=== PATIENT | male | born 2000 | race Caucasian/White ===

== ENCOUNTER → 2024-06-16 17:17 | Outpatient (REF) | payer OTHER, SELFPAY | LOC: MRI 3T 17:17 | PROVIDERS: ATTENDING PHYSICIAN Surgery; FAMILY PHYSICIAN Family Medicine | DX: L98.9 Disorder of the skin and subcutaneous tissue, unspecified (principal) | CPT/HCPCS: 72197; A9575 ==

== ENCOUNTER → 2024-07-14 11:10 | Outpatient (REF) | payer OTHER, SELFPAY ==
[2024-07-16 11:53] LABS: Quantiferon Mitogen minus NIL 9.98 IU/mL; Quantiferon NIL 0.02 IU/mL; Quantiferon Plus TB1 minus NIL 0.02 IU/mL (<=0.34); Quantiferon Plus TB2 minus NIL 0.01 IU/mL (<=0.34); Quantiferon TB Gold Plus Negative (Negative)
== END ==
LOC: OHS 11:10
PROVIDERS: ATTENDING PHYSICIAN Nurse Practitioner Family
DX: Z23 Encounter for immunization (principal)
CPT/HCPCS: 36415; 86480

== ENCOUNTER → 2024-09-12 08:10 | Outpatient (REF) | payer BC, SELFPAY | LOC: REG 08:10 | PROVIDERS: ATTENDING PHYSICIAN Surgery; FAMILY PHYSICIAN Family Medicine | DX: N36.0 Urethral fistula (principal) | CPT/HCPCS: 36415; 86140 ==

== ENCOUNTER 2024-11-28 06:23 | Day surgery (SDC) | payer BC, SELFPAY | END 2024-11-28 09:03 | disposition home or self-care (01) | LOC: GI 06:23 | PROVIDERS: ATTENDING PHYSICIAN Internal Medicine Gastroenterology | DX: K64.0 First degree hemorrhoids (principal); K62.89 Other specified diseases of anus and rectum; L98.8 Other specified disorders of the skin and subcutaneous tissue; K52.89 Other specified noninfective gastroenteritis and colitis | CPT/HCPCS: 45380; 88305 ==

== ENCOUNTER → 2024-12-06 07:30 | Outpatient (REF) | payer BC, SELFPAY ==
[2024-12-06 09:29] LABS: % Basophils 0.4 % (0-2); % Eosinophils 4.8 % (0-6); % Immature Granulocytes 0.4 % (0-0.5); % Lymphocytes 34.7 % (20.5-51.1); % Neutrophils 49.7 % (42.2-75.2); Absolute Eosinophils 0.2 10^3/uL (0-0.7); Absolute Lymphocytes 1.6 10^3/uL (1.2-3.4); Absolute Monocytes 0.5 10^3/uL (0.1-0.6); Absolute Neutrophils 2.3 10^3/uL (1.4-6.5); Hematocrit 45.5 % (39.0-52.0); Hemoglobin 15.4 g/dL (13.0-18.0); Mean Corp Hgb Conc. 33.8 g/dL (33.0-37.0); Mean Corpuscular Hgb 30.5 pg (27.0-31.0); Mean Corpuscular Volume 90.1 fL (80.0-94.0); Mean Platelet Volume 9.8 fL (7.4-10.4); Nucleated Red Blood Cells % 0 % (-); Platelet Count 232 10^3/uL (130-400); Red Blood Cell Count 5.05 10^6/uL (4.70-6.10); Red Cell Dist. Width 11.9 % (11.5-14.5); White Blood Cell Count 4.6 10^3/uL (4.8-10.8)
[2024-12-06 10:01] LABS: C-Reactive Protein < 5.00 mg/L (0.0-10.00)
[2024-12-06 12:29] LABS: Erythrocyte Sed Rate 7 mm/hour (0-20)
== END ==
LOC: REG 07:30
PROVIDERS: ATTENDING PHYSICIAN Internal Medicine Gastroenterology
DX: K60.30 Anal fistula, unspecified (principal)
CPT/HCPCS: 36415; 85025; 85652; 86140

== ENCOUNTER → 2024-12-07 12:49 | Outpatient (REF) | payer BC, SELFPAY | LOC: REG 12:49 | PROVIDERS: ATTENDING PHYSICIAN Internal Medicine Gastroenterology; FAMILY PHYSICIAN Family Medicine | DX: K60.30 Anal fistula, unspecified (principal) | CPT/HCPCS: 83993 ==

== ENCOUNTER → 2025-02-28 09:21 | Outpatient (REF) | payer BC, SELFPAY | LOC: MRI 3T 09:21 | PROVIDERS: ATTENDING PHYSICIAN Internal Medicine Gastroenterology; PRIMARYCARE PHYSICIAN Family Medicine | DX: K52.9 Noninfective gastroenteritis and colitis, unspecified (principal) | CPT/HCPCS: 72197; 74183; A9575 ==

== ENCOUNTER → 2025-05-04 19:25 | Outpatient (REF) | payer BC, SELFPAY | LOC: MRI 3T 19:25 | PROVIDERS: ATTENDING PHYSICIAN Surgery; FAMILY PHYSICIAN Family Medicine | DX: K60.30 Anal fistula, unspecified (principal) | CPT/HCPCS: 72197; A9575 ==